=== PATIENT | female | born 1995 | race Caucasian/White ===

== ENCOUNTER 2017-01-10 21:34 | Emergency (ER) | payer SELFPAY ==
[~2017-01-10] VITALS: Ht 170.2 cm; Wt 62.5 kg
[~2017-01-10 21:34] MED LIST: HYDR-906 PO; NITR-58 PO
[2017-01-10 21:47] VITALS: Ht 170.2 cm; Wt 62.5 kg
[2017-01-10] MEDS ORDERED: BACTDS PO (22:46)
[2017-01-10] MEDS ORDERED: MUPI22OI2 TOP (22:46)
[2017-01-10] MEDS ORDERED: CEPH-443 PO (22:46)
--- NOTE | 2017-01-10 23:02 | ERD ---
ER Documentation Chief Complaint Date/Time DATE: 01/10/17 TIME: 23:01 Chief Complaint LEFT UPPER ARM "BITE". APPEARS TO BE A PIMPLE WITH SURROUNDING INDURATION HPI 21-year-old female presents with a left upper arm abscess that started about 5 days ago. She states that she has had staph infections in the past. She denies any fevers, chills. It has been within 6 months and she was on antibiotics for something similar. ROS All systems reviewed and are negative except as per history of present illness. Medications Home Meds Active Scripts Mupirocin* (Bactroban*) 2% -22 Gram Oint...g., 1 APPLIC TOP BID for 7 Days, EA Prov:YUE SILVA PA-C 01/10/17 Sulfamethoxazole-Trimethoprim* (Bactrim* DS) 800-160 Mg Tab, 1 TAB PO BID for 7 Days, TAB Prov:YUE SILVA PA-C 01/10/17 Cephalexin* (Keflex*) 500 Mg Capsule, 500 MG PO QID for 7 Days, CAP Prov:YUE SILVA PA-C 01/10/17 Hydrocodone/Acetaminophen (Carmel 5-325 Tablet) 1 Each Tablet, 1 TAB PO Q6H Y for PAIN, #7 TAB Prov:YUE SILVA PA-C 06/14/16 Nitrofurantoin Monohyd Macrocr* (Macrobid*) 100 Mg Capsr, 100 MG PO BID for 7 Days, CAP Prov:YUE SILVA PA-C 06/14/16 Allergies Allergies: Coded Allergies: No Known Allergy (Unverified , 06/30/15) PMhx/Soc History of Surgery: No Anesthesia Reaction: No Hx Neurological Disorder: No Hx Respiratory Disorders: No Hx Cardiac Disorders: No Hx Psychiatric Problems: No Hx Miscellaneous Medical Probl: No Hx Alcohol Use: No Hx Substance Use: No Hx Tobacco Use: Yes Smoking Status: Never smoker Physical Exam Vitals Vital Signs Date Time Temp Pulse Resp B/P Pulse Ox O2 Delivery O2 Flow Rate FiO2 01/10/17 21:47 98.4 101 16 129/84 99 Physical Exam General: Well-developed, well-nourished. The patient appears in no acute distress. HEENT: Head is normocephalic, atraumatic. No scleral icterus. Neck: Supple. Nontender. Lungs: Clear to auscultation. Normal air movement. Heart: Regular rate and rhythm. S1 and S2 are normal. No murmurs, gallops, or rubs. Abdomen: Nondistended. Extremities: No clubbing or cyanosis. Moving extremities x 4. No weakness. Neurologic: Alert and oriented 3. No focal deficits. Normal speech and gait. Skin: 1.5 cm area of erythema, with the central aspect has a pustular head. Mild surrounding erythema, no fluctuance Procedures/MDM 21-year-old female presents with an abscess, it is superficial, without any signs of need incision and drainage. Patient will be given Keflex, Bactrim, and was advised to do warm compresses daily, and to apply Bactroban. She should return if there is worsening infection, otherwise recheck the wound in about 3 days. Departure Diagnosis: Primary Impression: Abscess Condition: Good Patient Instructions: Abscess, Antiobiotic Treatment Only Additional Instructions: Check wound in 3-4 days. She should return sooner if any worsening any symptoms. YUE SILVA PA-C Jan 10, 2017 23:02
== END 2017-01-10 23:40 | disposition home or self-care (01) ==
LOC: FTE 21:34 → E/R 23:40
DX: L02.414 Cutaneous abscess of left upper limb (principal); Z87.891 Personal history of nicotine dependence
CPT/HCPCS: 99284

== ENCOUNTER 2018-02-26 08:10 | Inpatient (IN) | END 2018-03-01 16:58 | disposition home or self-care (01) | DRG 765 ==

== ENCOUNTER 2019-04-21 23:06 | Emergency (ER) | payer OTHER ==
[~2019-04-21] VITALS: Ht 170.2 cm; Wt 71.6 kg
[2019-04-21 23:08] VITALS: Ht 170.2 cm; Wt 71.6 kg
[2019-04-22] MEDS ORDERED: CLIN300C10 PO (00:01)
[2019-04-22 00:12] VITALS: BP 140/86; PULSE 100; RESP 16
--- NOTE | 2019-04-29 01:50 | ERD ---
ER Documentation Chief Complaint Chief Complaint ABSCESS IN R AXILLA X'S 3 DAYS HPI 23-year-old female presented to the emergency department complaining of redness and swelling to the left axillary region for the past 3 days. Symptoms have worsened. She took no medication for relief of symptoms. She denies any fe vers, chills, or other symptoms at this time. She reports recent history of IV drug abuse. ROS All systems reviewed and are negative except as per history of present illness. Medications Home Meds Active Scripts Clindamycin Hcl* (Clindamycin Hcl*) 300 Mg Capsule, 300 MG PO TID for 10 Days, CAP Prov:JHONATHAN JERONIMO PA-C 04/22/19 Allergies Allergies: Coded Allergies: No Known Allergy (Unverified , 06/30/15) PMhx/Soc Medical and Surgical Hx: pt denies Medical Hx, pt denies Surgical Hx History of Surgery: No Anesthesia Reaction: No Hx Neurological Disorder: No Hx Respiratory Disorders: No Hx Cardiac Disorders: No Hx Psychiatric Problems: No Hx Miscellaneous Medical Probl: No Hx Alcohol Use: No Hx Substance Use: No Hx Tobacco Use: Yes Smoking Status: Current every day smoker FmHx Family History: No diabetes Physical Exam Physical Exam Const: No acute distress Head: Atraumatic Eyes: Normal Conjunctiva ENT: Normal External Ears, Nose and Mouth. Neck: Full range of motion. No meningismus. Resp: Clear to auscultation bilaterally Cardio: Regular rate and rhythm, no murmurs Abd: Soft, non tender, non distended. Normal bowel sounds Skin: Multiple indurated erythematous pustules to the left axillary region. No lymphatic streaking. Back: No midline or flank tenderness Ext: No cyanosis, or edema Neur: Awake and alert Psych: Normal Mood and Affect Procedures/MDM 23-year-old female presents to the emergency department with signs and symptoms most consistent with folliculitis of the left axillary region. Patient showed no signs of systemic infection. She will be given prescription for antibiotics and discharge with strict return precautions. Departure Diagnosis: Primary Impression: Folliculitis Condition: Fair Patient Instructions: Abscess, Antiobiotic Treatment Only Referrals: [facility] YOU HAVE RECEIVED A MEDICAL SCREENING EXAM AND THE RESULTS INDICATE THAT YOU DO NOT HAVE A CONDITION THAT REQUIRES URGENT TREATMENT IN THE EMERGENCY DEPARTMENT. FURTHER EVALUATION AND TREATMENT OF YOUR CONDITION CAN WAIT UNTIL YOU ARE SEEN IN YOUR DOCTORS OFFICE WITHIN THE NEXT 1-2 DAYS. IT IS YOUR RESPONSIBILITY TO MAKE AN APPOINTMENT FOR FOLOW-UP CARE. IF YOU HAVE A PRIMARY DOCTOR --you should call your primary doctor and schedule an appointment IF YOU DO NOT HAVE A PRIMARY DOCTOR YOU CAN CALL OUR PHYSICIAN REFERRAL HOTLINE AT IF YOU CAN NOT AFFORD TO SEE A PHYSICIAN YOU CAN CHOSE FROM THE FOLLOWING [facility] [id number] [facility]. [facility] [address] [facility] [address] [facility] [facility] [address] [facility]. [facility] [address] [facility]. [facility]. [address] Additional Instructions: Call your primary care doctor TOMORROW for an appointment during the next 1-2 days.See the doctor sooner or return here if your condition worsens before your appointment time. JHONATHAN JERONIMO PA-C Apr 29, 2019 01:50
== END 2019-04-22 00:13 | disposition home or self-care (01) ==
LOC: FTE 23:06
DX: L73.9 Follicular disorder, unspecified (principal); F17.210 Nicotine dependence, cigarettes, uncomplicated
CPT/HCPCS: 99283

== ENCOUNTER 2019-06-24 22:24 | Inpatient (IN) | payer OTHER ==
[~2019-06-24] VITALS: Ht 170.2 cm; Wt 69.7 kg
[~2019-06-24 22:24] MED LIST changes: +CEPH-443 PO; +CLIN300C10 PO; -HYDR-906 PO; -NITR-58 PO
[2019-06-24] MEDS ORDERED: ACETAMINOPHEN 325 MG TAB PO STA (22:47)
[2019-06-24] MEDS ORDERED: CEFTRIAXONE 1 GM/50 ML (PMX) 50 ML IVPB STA (22:47)
[2019-06-24] MEDS ORDERED: SODIUM CHLORIDE 0.9% 1L BAG IV* STA (22:47)
[2019-06-25] MEDS ORDERED: PIPER-TAZO 3.375 GM IV (PMX) 100 ML IVPB ONE
[2019-06-25] MEDS ORDERED: ONDANSETRON 4 MG INJ IV PRN ×2 (01:00→02:00)
[2019-06-25] MEDS ORDERED: ACETAMINOPHEN 325 MG TAB PO PRN ×2 (01:00→02:00)
[2019-06-25] MEDS ORDERED: GENTAMICIN IV PER PHARMACY XX SCH (02:00)
[2019-06-25] MEDS ORDERED: DEXTROSE 5%-0.9% NACL 1,000 ML IV SCH (02:00)
[2019-06-25] MEDS ORDERED: CLINDAMYCIN 900 MG (PMX) 50 ML IVPB SCH (02:00)
[2019-06-25] MEDS ORDERED: morphine 2 MG INJ IV PRN (02:00)
[2019-06-25 02:30] VITALS: BP 99/58; PULSE 100; RESP 18
[2019-06-25 02:33] VITALS: Ht 170.2 cm; Wt 69.7 kg
[2019-06-25] MEDS ORDERED: GENTAMICIN 300 MG in SOD CHLORIDE 0.9% 100 ML IVPB SCH (04:00)
== END 2019-06-25 03:32 | disposition left against medical advice (07) | DRG 779 ==
LOC: E/R 22:24 → PP2 06-25 00:48 → UNDODISIN 06-25 03:32
PROVIDERS: ADMIT Legal Medicine; ATTEND Legal Medicine
DX: O03.37 Sepsis following incomplete spontaneous abortion (principal)
CPT/HCPCS: 36415; 71045; 74176; 76830; 76856; 80053; 81001; 81003; 81025; 83605; 84484; 84702; 84703; 85025; 85610; 85730; 87086; 96374; 96375; J0696; J1580; J2543; J7030; J7042